=== PATIENT | male | born 2000 | race Caucasian/White ===

== ENCOUNTER 2025-04-14 21:08 | Emergency (ER) | payer OTHER ==
[~2025-04-14] VITALS: Ht 177.8 cm; Wt 77.6 kg
[2025-04-14] MEDS ORDERED: IBUPROFEN 400 MG TABLET ONE (22:27)
[2025-04-14] MEDS: IBUPROFEN 400 MG TABLET PO ONE (22:48)
[2025-04-14 23:08] VITALS: BP 120/85; TEMP 98.4; O2SAT 99
== END 2025-04-14 23:09 | disposition home or self-care (01) ==
LOC: ER 21:20
DX: S13.4XXA Sprain of ligaments of cervical spine, initial encounter (principal); S30.0XXA Contusion of lower back and pelvis, initial encounter; Z60.2 Problems related to living alone; V89.2XXA Person injured in unspecified motor-vehicle accident, traffic, initial encounter; Y93.89 Activity, other specified; Y92.415 Exit ramp or entrance ramp of street or highway as the place of occurrence of the external cause; Y99.8 Other external cause status
CPT/HCPCS: 72125-TC; 72131-TC